=== PATIENT | female | born 1980 | race African-American/Black ===

== ENCOUNTER 2016-04-25 05:23 | Emergency (ER) | payer SELFPAY ==
[~2016-04-25] VITALS: Ht 172.7 cm; Wt 115.0 kg
[~2016-04-25 05:23] MED LIST: CHLO.12%30 SSP; NAPR-576 PO; PENI500T PO
[2016-04-25 05:28] VITALS: BP 129/84; PULSE 115; RESP 20; TEMP 97.9; O2SAT 99
[2016-04-25] MEDS ORDERED: VIST25CA PO (05:38)
--- NOTE | 2016-04-25 05:40 | PD ---
HPI Chief Complaint: Anxiety Time Seen by Provider: 05:30 Travel History International Travel<30 days: No Contact w/Intl Traveler<30days: No Traveled to known affect area: No History of Present Illness HPI 36-year-old female presents for evaluation of anxiety. She woke up this morning feeling anxious. She reports that she has been thinking about her mother and her mother's medical issues and this has made her anxious. She denies any drug or alcohol use. She reports that her mother gave her a small portion of her trazodone pill as well as some aspirin and Tylenol but none of this helped with her anxiety. She denies any depression, suicidal or homicidal ideation. She feels safe at home. She has no other complaints at this time. [facility] Past Medical History Anemia: Yes Diminished Hearing: No Immunizations Current: Yes ?: Not Menopausal: No : 3 Para: 3 Past Surgical History Abdominal Surgery: Yes (UMBILICAL HERNIA REPAIR) Social History Alcohol Use: Yes (SOCIAL) Tobacco Use: Yes (1/2PPD) Substance Use: No (marjuana use last used yesterday 02/15/13) Allergies-Medications (Allergen,Severity, Reaction): Coded Allergies: No Known Allergies (Verified , 04/25/16) Reported Meds & Prescriptions Reported Meds & Active Scripts Active Vistaril (Hydroxyzine Pamoate) 25 Mg Cap 25 Mg PO Q6H PRN Review of Systems Except as stated in HPI: all other systems reviewed are Neg Physical Exam Narrative GENERAL: Well-developed well-nourished female in no acute distress who appears anxious. SKIN: Warm and dry. HEAD: Atraumatic. Normocephalic. EYES: Pupils equal and round. No scleral icterus. No injection or drainage. ENT: No nasal bleeding or discharge. Mucous membranes pink and moist. NECK: Trachea midline. No JVD. CARDIOVASCULAR: Regular rate and rhythm. No murmur appreciated. RESPIRATORY: No accessory muscle use. Clear to auscultation. Breath sounds equal bilaterally. GASTROINTESTINAL: Abdomen soft, non-tender, nondistended. Hepatic and splenic margins not palpable. MUSCULOSKELETAL: No obvious deformities. NEUROLOGICAL: Awake and alert. No obvious cranial nerve deficits. Motor grossly within normal limits. Normal speech. PSYCHIATRIC: Anxious. Insight and judgment normal. Data Data Last Documented VS Vital Signs Date Time Temp Pulse Resp B/P Pulse Ox O2 Delivery O2 Flow Rate FiO2 04/25/16 05:35 109 04/25/16 05:28 97.9 20 129/84 99 Orders Hydroxyzine Hcl Inj (Vistaril Inj) (04/25/16 05:45) [facility] Medical Decision Making Medical Screen Exam Complete: Yes Emergency Medical Condition: Yes Medical Record Reviewed: Yes Differential Diagnosis Adjustment reaction, anxiety, acute psychosis, substance-induced disorder Narrative Course This patient presents because she woke up feeling anxious after thinking about her mother. On examination she appears anxious. She is not depressed or suicidal or psychotic. She is safe to follow-up as an outpatient with her primary care physician. She'll be given Vistaril to use as needed for anxiety. Diagnosis Primary Impression: Anxiety Additional Instructions: Medication as needed. Do not drive or drink alcohol when taking this medication. Follow-up closely with a primary care physician if symptoms persist. Return for any emergent medical conditions. Med/Other Pt SpecificInfo: Prescription(s) given Scripts Hydroxyzine Pamoate (Vistaril)25 Mg Cap25 Mg PO Q6H PRN (ANXIETY) #20 CAP Ref 0 Prov:Benigno Arredondo MD 04/25/16 Disposition: 01 DISCHARGE HOME Condition: Stable Bryce Salcedo Apr 25, 2016 05:40
[2016-04-25] MEDS ORDERED: hydrOXYzine HCL 50 MG/ML VIAL IM ONE (05:45)
== END 2016-04-25 06:27 | disposition home or self-care (01) ==
LOC: NEPB 05:23
DX: F41.9 Anxiety disorder, unspecified (principal); F17.200 Nicotine dependence, unspecified, uncomplicated; Z86.2 Personal history of diseases of the blood and blood-forming organs and certain disorders involving the immune mechanism
CPT/HCPCS: 96372; 99283; J3410

== ENCOUNTER 2016-08-22 20:03 | Emergency (ER) | payer SELFPAY ==
[~2016-08-22 20:03] MED LIST changes: -CHLO.12%30 SSP; -NAPR-576 PO; -PENI500T PO; +VIST25CA PO
[2016-08-22 20:05] VITALS: BP 125/73; PULSE 103; RESP 16; TEMP 99; O2SAT 98
[2016-08-22] MEDS ORDERED: DICL75TA PO (20:46)
--- NOTE | 2016-08-22 20:46 | PD ---
HPI Chief Complaint: Pain: Acute or Chronic Time Seen by Provider: 20:40 Travel History International Travel<30 days: No Contact w/Intl Traveler<30days: No Traveled to known affect area: No History of Present Illness HPI 36-year-old black female presents emergency Department with complains of right knee pain. She states that she been having pain in her right knee now for nearly 11 months. She states that this started after she had gotten . She states that she had gained a lot of weight. She is slowly lost some weight. She complains of pain around the kneecap and under the kneecap. Worse with bending and movement. She has some relief with elevation at the end of the day. She states that is worse when she gets up and starts moving. She does smoke but she doesn't not take control. No history of blood problems. Pain is moderate. Worse with movement. The patient denies any trauma. She does not work. PFSH Past Medical History Narrative Medical Obesity Anemia: Yes Diminished Hearing: No Immunizations Current: Yes Tetanus Vaccination: < 5 Years LMP: 08/01/16 Menopausal: No : 3 Para: 3 Past Surgical History Abdominal Surgery: Yes (UMBILICAL HERNIA REPAIR) Social History Alcohol Use: Yes (SOCIAL) Tobacco Use: Yes (1/2PPD) Allergies-Medications (Allergen,Severity, Reaction): Coded Allergies: No Known Allergies (Verified , 08/22/16) Reported Meds & Prescriptions Reported Meds & Active Scripts Active Vistaril (Hydroxyzine Pamoate) 25 Mg Cap 25 Mg PO Q6H PRN Review of Systems Except as stated in HPI: all other systems reviewed are Neg General / Constitutional: No: Fever Eyes: No: Blurred Vision HENT: No: Sore Throat, Neck Stiffness Cardiovascular: No: Chest Pain or Discomfort, Palpitations Respiratory: No: Cough, Shortness of Breath Gastrointestinal: No: Nausea, Vomiting Musculoskeletal: Positive: Arthralgias, Limited ROM, Edema, Pain Physical Exam Narrative GENERAL: This is a well-nourished, well-developed patient, in no apparent distress. Patient is morbidly obese. She ambulates with an antalgic gait. SKIN: No rashes, ecchymoses or lesions. Warm and dry. HEAD: Atraumatic. Normocephalic. EYES: PERRL, EOMI, no discharge or injection. No scleral icterus. EARS: Clear NOSE: Nasal turbinates appear normal. THROAT: Mucosa pink and moist. Airway patent. NECK: Trachea midline. supple, moves head freely. LUNGS: Clear to auscultation. CV: Regular in rhythm. ABDOMEN: Soft nontender. EXT: No clubbing cyanosis. Examination of the right lower extremity reveals infrapatellar tenderness to palpation. There is no erythema or warmth.. The patient has very large body habitus and his very difficult to determine swelling or joint effusion. She has full extension but has limited flexion due to pain. No gross instability. No pain in the hip, ankle or foot. She has intact sensation distally. She has intact dorsalis pedis pulse. No posterior calf tenderness. Data Data Last Documented VS Vital Signs Date Time Temp Pulse Resp B/P Pulse Ox O2 Delivery O2 Flow Rate FiO2 08/22/16 20:05 99.0 103 16 125/73 98 Room Air MDM Medical Decision Making Medical Screen Exam Complete: Yes Emergency Medical Condition: Yes Medical Record Reviewed: Yes Differential Diagnosis MDM: High Differential diagnoses: Fracture, sprain, strain, dislocation, contusion, neurovascular injury, bursitis, DVT Narrative Course The patient's symptoms are consistent with inflammatory arthritis and patellar bursitis. There is no evidence of DVT at this time. Diagnosis Primary Impression: Right knee pain Qualified Code: M25.561 - Chronic pain of right knee Additional Impressions: Osteoarthritis Qualified Code: M17.0 - Osteoarthritis of both knees, unspecified osteoarthritis type Patellar bursitis of right knee Patient Instructions: General Instructions Additional Instructions: Rest. Elevation. Ice. Diclofenac. Follow-up with the [facility] in one week. Return to the ER if symptoms worsen. Med/Other Pt SpecificInfo: Prescription(s) given Disposition: DISCHARGE HOME Condition: Stable Eamon Amador Aug 22, 2016 20:46
== END 2016-08-22 21:28 | disposition home or self-care (01) ==
LOC: NEPK 20:03
DX: M25.561 Pain in right knee (principal); G89.29 Other chronic pain; E66.9 Obesity, unspecified; F17.210 Nicotine dependence, cigarettes, uncomplicated; M17.0 Bilateral primary osteoarthritis of knee; M70.51 Other bursitis of knee, right knee
CPT/HCPCS: 99283

== ENCOUNTER 2016-08-29 19:35 | Emergency (ER) | payer SELFPAY ==
[~2016-08-29] VITALS: Ht 167.6 cm; Wt 90.0 kg
[~2016-08-29 19:35] MED LIST changes: +DICL75TA PO
[2016-08-29 19:36] VITALS: BP 127/83; PULSE 101; RESP 18; TEMP 99.9; O2SAT 100
--- NOTE | 2016-08-29 20:52 | PD ---
Physical Exam Date Seen by Provider: Aug 29, 2016 Time Seen by Provider: 20:50 Narrative 36 yo female here for evaluation of right mouth pain. Has had this for 3 days. Pain moving to her right head. Pain is 8/10. OTC not helping. Cant eat because of pain. No injuries. Per patient it is an abscess. Vitals sign stable. Patient awaiting bed placement. Data Data Last Documented VS Vital Signs Date Time Temp Pulse Resp B/P Pulse Ox O2 Delivery O2 Flow Rate FiO2 08/29/16 19:36 99.9 101 18 127/83 100 Room Air [facility] Medical Record Reviewed: Yes Supervised Visit with DOROTEO: No Jeancarlos Auguste Aug 29, 2016 20:52
[2016-08-29] MEDS ORDERED: AMOX875T PO (23:13)
[2016-08-29] MEDS ORDERED: TRAM50TA PO (23:14)
--- NOTE | 2016-08-29 23:14 | PD ---
HPI Chief Complaint: Oral / Dental Pain or Problem Time Seen by Provider: 23:09 Travel History International Travel<30 days: No Contact w/Intl Traveler<30days: No Traveled to known affect area: No History of Present Illness HPI Patient is a 36 year female presenting to the emergency for evaluation of right lower tooth pain. Pain started 3 days ago, patient states she is taking Aleve with no significant relief in her symptoms. She reports that the left cheek is swollen. She states that it's hard to chew. She has not attempted to contact a dentist for evaluation. She reports that her pain is an 8 out of 10 and describes it as throbbing. She denies any acute dental trauma. PFS Past Medical History Anemia: Yes Diminished Hearing: No Immunizations Current: Yes ?: Unknown LMP: 08/01/16 Menopausal: No : 3 Para: 3 Past Surgical History Abdominal Surgery: Yes (UMBILICAL HERNIA REPAIR) Social History Alcohol Use: Yes (SOCIAL) Tobacco Use: Yes (1/2PPD) Substance Use: No (marjuana use last used yesterday 02/15/13) Allergies-Medications (Allergen,Severity, Reaction): Coded Allergies: No Known Allergies (Verified , 08/29/16) Reported Meds & Prescriptions Reported Meds & Active Scripts Active Diclofenac Sodium DR (Diclofenac Sodium) 75 Mg Tabdr 75 Mg PO BID Vistaril (Hydroxyzine Pamoate) 25 Mg Cap 25 Mg PO Q6H PRN Review of Systems Except as stated in HPI: all other systems reviewed are Neg HENT: Positive: Dental Difficulties Physical Exam Narrative GENERAL: Well-nourished, well-developed patient. SKIN: Focused skin assessment warm/dry. HEAD: Normocephalic. EYES: No scleral icterus. No injection or drainage. ENT: Mucosa pink and moist. No erythema or exudates. No uvular edema. No uvular , palatal, or tonsillar deviation. Airway patent. Right lower third molar appears diseased. No obvious abscess noted along gumlines. NECK: Supple, trachea midline. No JVD or lymphadenopathy. CARDIOVASCULAR: Regular rate and rhythm without murmurs, gallops, or rubs. RESPIRATORY: Breath sounds equal bilaterally. No accessory muscle use. GASTROINTESTINAL: Abdomen soft, non-tender, nondistended. MUSCULOSKELETAL: No cyanosis, or edema. BACK: Nontender without obvious deformity. No CVA tenderness. Data Data Last Documented VS Vital Signs Date Time Temp Pulse Resp B/P Pulse Ox O2 Delivery O2 Flow Rate FiO2 08/29/16 19:36 99.9 101 18 127/83 100 Room Air Orders Ketorolac Inj (Toradol Inj) (08/29/16 23:15) Amoxicillin (Trimox) (08/29/16 23:15) MDM Medical Decision Making Medical Screen Exam Complete: Yes Emergency Medical Condition: Yes Interpretation(s) Vital Signs Date Time Temp Pulse Resp B/P Pulse Ox O2 Delivery O2 Flow Rate FiO2 08/29/16 19:36 99.9 101 18 127/83 100 Room Air Differential Diagnosis Abscess versus dental jaw versus dental caries versus other Narrative Course Patient is a 36-year-old female presenting to the emergency reevaluation of right lower dental pain. Upon physical examination there is dental disease noted to the right lower molars, there does not appear to be any obvious abscess noted. Patient will be started on amoxicillin and given first dose tonight in the emergency department. She was advised to follow-up with a dentist for further evaluation and management. She was advised to return to emergency department for any new or worsening symptoms. Patient verbalizes understanding of these instructions. Patient stable for discharge. Diagnosis Primary Impression: Pain, dental Additional Impression: Dental caries Referrals: Dentist 1 week Patient Instructions: Dental Caries (DC), General Instructions, Toothache (ED) Additional Instructions: Follow-up with a dentist Complete full course of antibiotics as prescribed Return to emergency department immediately for any new or worsening symptoms Med/Other Pt SpecificInfo: Prescription(s) given Scripts Tramadol 50 Mg Tab50 Mg PO Q6H PRN (PAIN) #10 TAB Ref 0 Prov:Hayden Messer MD 08/29/16 Amoxicillin 875 Mg [id number] Mg PO BID 10 Days Ref 0 Prov:Rubina Moreno 08/29/16 Disposition: 01 DISCHARGE HOME Condition: Stable Rubina Moreno Aug 29, 2016 23:14
[2016-08-29] MEDS ORDERED: KETOROLAC TROMETHAMINE 60 MG/2 ML (IM) VIAL IM ONE (23:15)
[2016-08-29] MEDS ORDERED: AMOXICILLIN 875 MG TAB PO ONE (23:15)
== END 2016-08-29 23:44 | disposition home or self-care (01) ==
LOC: NEPD 19:35
DX: K08.89 Other specified disorders of teeth and supporting structures (principal); K02.9 Dental caries, unspecified; F17.200 Nicotine dependence, unspecified, uncomplicated
CPT/HCPCS: 96372; 99284; J1885

== ENCOUNTER 2017-02-17 13:53 | Emergency (ER) | payer SELFPAY ==
[~2017-02-17] VITALS: Ht 167.6 cm; Wt 113.5 kg
[~2017-02-17 13:53] MED LIST changes: +AMOX875T PO; +TRAM50TA PO
[2017-02-17 13:54] VITALS: BP 176/98; PULSE 116; RESP 20; TEMP 98.4; O2SAT 100
[2017-02-17] MEDS ORDERED: ASPIRIN 81 MG CHEW TAB PO ONE (16:30)
[2017-02-17] MEDS ORDERED: SODIUM CHLORIDE 0.9% FLUSH 10 ML FLUSH IVF PRN (16:30)
--- NOTE | 2017-02-17 16:33 | PD ---
HPI Chief Complaint: Anxiety Time Seen by Provider: 16:21 Travel History International Travel<30 days: No Contact w/Intl Traveler<30days: No Traveled to known affect area: No History of Present Illness HPI Patient comes in complaining of anxiety attack that began while at lunch today. Patient states that prior to going to lunch she had some left-sided neck pain and headache. Patient states she took some Tylenol that seem to help improve this however when she went to have lunch and started having tingling in her left upper extremity. Patient reports associated substernal chest pain described as a stabbing that began while in the ER. Patient reports a history of anxiety but is not on any medication currently. Patient states this felt similar to her previous anxiety attacks. Patient does report recent travel by car to [place], [place]. Patient admits to smoking. Denies any known family history of heart attacks or sudden before age 40. PFSH Past Medical History Anemia: Yes Anxiety: Yes Diminished Hearing: No Immunizations Current: Yes Tetanus Vaccination: > 5 Years Influenza Vaccination: No ?: Unknown Menopausal: No : 3 Para: 3 Past Surgical History Abdominal Surgery: Yes (UMBILICAL HERNIA REPAIR) Social History Alcohol Use: Yes (SOCIAL) Tobacco Use: Yes (1 PPD) Substance Use: Yes (marjuana use last used yesterday 02/15/13) Allergies-Medications (Allergen,Severity, Reaction): Coded Allergies: No Known Allergies (Verified Allergy, Unknown, 02/17/17) Reported Meds & Prescriptions Reported Meds & Active Scripts Active Vistaril (Hydroxyzine Pamoate) 25 Mg Cap 25 Mg PO Q6H PRN Tramadol (Tramadol HCl) 50 Mg Tab 50 Mg PO Q6H PRN Amoxicillin 875 Mg Tab 875 Mg PO BID [address] (Diclofenac Sodium) 75 Mg Tabdr 75 Mg PO BID Review of Systems Except as stated in HPI: all other systems reviewed are Neg Physical Exam Narrative GENERAL: Well-developed, overly nourished, in no acute distress, and non-ill appearing. SKIN: Focused skin assessment warm and dry. HEAD: Atraumatic. Normocephalic. EYES: Pupils equal and round. EOMI. No scleral icterus. No injection or drainage. ENT: No nasal bleeding or discharge. Mucous membranes pink and moist. NECK: Trachea midline. Supple. No nuclear rigidity. CARDIOVASCULAR: Regular rate and rhythm. No murmur appreciated. RESPIRATORY: No accessory muscle use. No respiratory distress. Clear to auscultation. Breath sounds equal bilaterally. MUSCULOSKELETAL: No obvious deformities. No clubbing. No cyanosis. No edema. Full range of motion. NEUROLOGICAL: Awake and alert. No obvious cranial nerve deficits. Motor grossly within normal limits. Normal speech. PSYCHIATRIC: Appropriate mood and affect; insight and judgment normal. Data Data Last Documented VS Vital Signs Date Time Temp Pulse Resp B/P (MAP) Pulse Ox O2 Delivery O2 Flow Rate FiO2 02/17/17 18:56 02/17/17 16:35 99 Room Air 02/17/17 16:21 18 02/17/17 13:54 98.4 116 Orders Orders Electrocardiogram (02/17/17 ) Basic Metabolic Panel (Bmp) (02/17/17 16:26) Ckmb (Isoenzyme) Profile (02/17/17 16:26) Complete Blood Count With Diff (02/17/17 16:26) D-Dimer (02/17/17 16:26) Magnesium (Mg) (02/17/17 16:26) Prothrombin Time / Inr (Pt) (02/17/17 16:26) Act Partial Throm Time (Ptt) (02/17/17 16:26) Troponin I (02/17/17 16:26) Chest, Single Ap (02/17/17 16:26) Ecg Monitoring (02/17/17 16:26) Bilateral Bp Monitoring (02/17/17 16:26) Iv Access Insert/Monitor (02/17/17 16:26) Oximetry (02/17/17 16:26) Oxygen Administration (02/17/17 16:26) Aspirin Chew (Aspirin Chew) (02/17/17 16:30) Sodium Chloride 0.9% Flush (Ns Flush) (02/17/17 16:30) CKMB (02/17/17 16:30) CKMB% (02/17/17 16:30) Ct Pulmonary Angiogram (02/17/17 ) Ed Urine Pregnancytest Poc (02/17/17 18:14) Iohexol 350 Inj (Omnipaque 350 Inj) (02/17/17 18:37) Ed Discharge Order (02/17/17 18:50) Labs Laboratory Tests Test 12/1/17 16:30 White Blood Count 7.1 TH/MM3 Red Blood Count 4.21 MIL/MM3 Hemoglobin 12.0 GM/DL Hematocrit 36.0 % Mean Corpuscular Volume 85.7 FL Mean Corpuscular Hemoglobin 28.5 PG Mean Corpuscular Hemoglobin Concent 33.3 % Red Cell Distribution Width 14.0 % Platelet Count 292 TH/MM3 Mean Platelet Volume 8.9 FL Neutrophils (%) (Auto) 52.0 % Lymphocytes (%) (Auto) 39.9 % Monocytes (%) (Auto) 6.9 % Eosinophils (%) (Auto) 0.7 % Basophils (%) (Auto) 0.5 % Neutrophils # (Auto) 3.7 TH/MM3 Lymphocytes # (Auto) 2.8 TH/MM3 Monocytes # (Auto) 0.5 TH/MM3 Eosinophils # (Auto) 0.0 TH/MM3 Basophils # (Auto) 0.0 TH/MM3 CBC Comment DIFF FINAL Differential Comment Prothrombin Time 10.4 SEC Prothromb Time International Ratio 1.0 RATIO Activated Partial Thromboplast Time 25.4 SEC D-Dimer Quantitative (PE/DVT) 1.46 MG/L FEU Blood Urea Nitrogen 8 MG/DL Creatinine 0.75 MG/DL Random Glucose 87 MG/DL Calcium Level 8.5 MG/DL Magnesium Level 2.0 MG/DL Sodium Level 138 MEQ/L Potassium Level 3.8 MEQ/L Chloride Level 107 MEQ/L Carbon Dioxide Level 24.7 MEQ/L Anion Gap 6 MEQ/L Estimat Glomerular Filtration Rate 105 ML/MIN Total Creatine Kinase 175 U/L Creatine Kinase MB 0.9 NG/ML Troponin I LESS THAN 0.02 NG/ML MDM Medical Decision Making Medical Screen Exam Complete: Yes Emergency Medical Condition: Yes Interpretation(s) EKG reviewed by Dr. Polanco shows sinus rhythm ventricular rate of 96. No STEMI. Differential Diagnosis Atypical chest pain, PE, metabolic service, pneumonia, anxiety Narrative Course Patient was seen and examined. Initial laboratory radiological studies were ordered. Secondary to the elevated d-dimer a CT pulmonary angiogram was ordered to rule out PE. This was discussed with patient. All questions were answered. The patients symptoms by history and evaluation appears noncardiac, nor noncardiopulmonary in etiology. Evaluation revealed no evidence of cardiac involvement at this time. There is no clinical evidence to suggest thoracic aortic aneurysms or pathology, nor evidence to suggest pulmonary embolism, pericarditis, pneumothorax, nor pneumonia at this time. The patient has minimal risk factors for cardiac disease, pulmonary embolism or aortic disease. Patient in no obvious distress upon re-evaluation. Discussed patient with Dr. Polanco prior to discharge, who is in agreement care and disposition. All pertinent laboratory/Radiology result(s) discussed with patient. Patient was asked if they wanted to speak to my attending, which the patient did not wish to do at this time. Any questions/concerns in reference to patient diagnosis/ condition discussed and clarified prior to patient's discharge. Reinforced sheer importance of close follow up with patient's primary physician or primary care clinic. Instructed patient to return to ED immediately, if symptoms return/ worsen. Patient showed understanding of above instructions. Further instructions and recommendations were detailed in discharge paperwork. Patient ambulated without difficulty out of ED at discharge. Diagnosis Primary Impression: Anxiety Referrals: [facility] Patient Instructions: General Instructions Additional Instructions: Follow-up with your primary care physician and/or Kyler Resendiz next week for reevaluation. Take all medication as prescribed. Return to the emergency department if symptoms get worse. Med/Other Pt SpecificInfo: Prescription(s) given Scripts Hydroxyzine Pamoate (Vistaril) 25 Mg Cap 25 MG PO Q6H Y for ANXIETY, #20 CAP 0 Refills Prov: Tmaeka Polanco MD 02/17/17 Disposition: 01 DISCHARGE HOME Condition: Stable Aquiles Jefferson Feb 17, 2017 16:33
[2017-02-17 16:35] VITALS: O2SAT 99
[2017-02-17 17:16] LABS: AUTOMATED NEUTROPHIL # 3.7 TH/MM3 (1.8-7.7); BASOPHIL % 0.5 % (0.0-2.0); EOSINOPHIL % 0.7 % (0.0-4.0); HEMO FLAGS DIFF FINAL; LYMPH % 39.9 % (9.0-44.0); LYMPHOCYTE # 2.8 TH/MM3 (1.0-4.8); MEAN CELL VOLUME 85.7 FL (80.0-100.0); MEAN CORPUSCULAR HEMOGLOBIN 28.5 PG (27.0-34.0); MEAN CORPUSCULAR HGB CONC 33.3 % (32.0-36.0); MONO % 6.9 % (0.0-8.0); PLATELET COUNT 292 TH/MM3 (150-450); RED BLOOD COUNT 4.21 MIL/MM3 (4.00-5.30); WHITE BLOOD COUNT 7.1 TH/MM3 (4.0-11.0)
[2017-02-17 17:33] LABS: APTT (PATIENT) 25.4 SEC (24.3-30.1); PROTHROMBIN TIME - PATIENT 10.4 SEC (9.8-11.6)
[2017-02-17 17:36] LABS: ANION GAP 6 MEQ/L (5-15); BICARBONATE 24.7 MEQ/L (21.0-32.0); BLOOD UREA NITROGEN 8 MG/DL (7-18); CHLORIDE 107 MEQ/L (98-107); GLOMERULAR FILTRATION RATE 105 ML/MIN (>89); POTASSIUM 3.8 MEQ/L (3.5-5.1); SODIUM (NA) 138 MEQ/L (136-145)
[2017-02-17 17:39] LABS: CREATINE KINASE 175 U/L (26-192)
--- NOTE | 2017-02-17 17:48 | RADRPT ---
EXAM DATE/TIME: 02/17/2017 16:37 [facility] COMPARISON: No previous studies available for comparison. INDICATIONS : Chest pain. Anxiety attack today. MEDICAL HISTORY : None. SURGICAL HISTORY : Hiatal Hernia repair. ENCOUNTER: Initial ACUITY: 1 day PAIN SCORE: 8/10 LOCATION: Left middle chest FINDINGS: A single view of the chest demonstrates the lungs to be symmetrically aerated without evidence of mas s, infiltrate or effusion. The cardiomediastinal contours are unremarkable. Osseous structures are intact. CONCLUSION: No acute disease. Deepak Haynes MD FACR on February 17, 2017 at 17:46 Board Certified Radiologist. This report was verified electronically.
[2017-02-17 17:51] LABS: CKMB 0.9 NG/ML (0.5-3.6)
[2017-02-17] MEDS ORDERED: IOHEXOL 350 MG/ML 10 ML VIAL (for RAD DIAG) IVCONTRAST ONE (18:37)
--- NOTE | 2017-02-17 18:44 | RADRPT ---
EXAM DATE/TIME: 02/17/2017 18:21 [facility] COMPARISON: No previous studies available for comparison. INDICATIONS : Anxiety attack. Headache.Tingling left arm and neck. IV CONTRAST: 96 cc Omnipaque 350 (iohexol) IV RADIATION DOSE: 22.95 CTDIvol (mGy) ; Patient body habitus MEDICAL HISTORY : None Marijuana usage SURGICAL HISTORY : Umbilical hernia repair. ENCOUNTER: Initial ACUITY: 1 day PAIN SCALE: 0/10 LOCATION: chest TECHNIQUE: Volumetric scanning of the chest was performed using a pulmonary embolism protocol MIP images were re constructed. Using automated exposure control and adjustment of the mA and/or kV according to patien t size, radiation dose was kept as low as reasonably achievable to obtain optimal diagnostic quality images. DICOM format image data is available electronically for review and comparison. Follow-up recommendations for detected pulmonary nodules are based at a minimum on nodule size and pa tient risk factors according to Fleischner Society Guidelines. FINDINGS: PULMONARY ARTERIES: No filling defects are seen in the pulmonary arteries through the segmental level. LUNGS: There is no consolidation or pneumothorax . No concerning pulmonary nodule is visualized. PLEURAE: There is no pleural thickening or pleural effusion. MEDIASTINUM: There is good visualization of the great vessels of the middle mediastinum. No evidence of mediastin al or hilar adenopathy/mass. MUSCULOSKELETAL: Within normal limits for patient age. MISCELLANEOUS: The visualized upper abdominal organs demonstrate no acute abnormality. CONCLUSION: 1. Negative for pulmonary embolism. No lung consolidation or pleural pericardial effusion. Eamon Gallegos MD on February 17, 2017 at 18:39 Board Certified Radiologist. This report was verified electronically.
[2017-02-17] MEDS ORDERED: VIST25CA PO (18:50)
--- NOTE | 2017-02-19 23:27 | EKG ---
Date Performed: 02/17/2017 Time Performed: 14:07:51 PTAGE: 36 years EKG: Sinus rhythm NORMAL ECG PREVIOUS TRACING : 02/16/2013 19.32 Compared to prior tracing no significant change DOCTOR: Cody Cade Interpretating Date/Time 02/19/2017 23:26:59
== END 2017-02-17 18:59 | disposition home or self-care (01) ==
LOC: NEPD 13:53
DX: F41.9 Anxiety disorder, unspecified (principal); M54.2 Cervicalgia; R51 Headache; D64.9 Anemia, unspecified; F17.200 Nicotine dependence, unspecified, uncomplicated; Z79.899 Other long term (current) drug therapy
CPT/HCPCS: 71010; 71275; 80048; 82550; 82552; 83735; 84484; 84703; 85025; 85379; 85610; 85730; 93005; 99285; Q9967

== ENCOUNTER 2017-05-29 12:44 | Emergency (ER) | payer SELFPAY ==
[2017-05-29 12:52] VITALS: BP 108/62; TEMP 98.1; O2SAT 100
[2017-05-29] MEDS ORDERED: ASPI-516 CHEW (12:52)
[2017-05-29] MEDS ORDERED: CEPH-460 PO (13:06)
[2017-05-29] MEDS ORDERED: BACT800T5 PO (13:06)
--- NOTE | 2017-05-29 13:13 | PD ---
HPI Chief Complaint: Skin Problem Time Seen by Provider: 12:59 Travel History International Travel<30 days: No Contact w/Intl Traveler<30days: No Traveled to known affect area: No History of Present Illness HPI 37-year-old female presents emergency department with concerns of the wound and possible infection to the right lower extremity. States she had an ingrown hair couple of days ago and her cousin picked it out resulting in this wound/ ulcer. States the site is more painful and believes it may be infected. Denies fever, chills, nausea, vomiting. She denies numbness or tingling to the area. She has no other complaints today. PFSH Past Medical History Anemia: Yes Anxiety: Yes Diminished Hearing: No Immunizations Current: Yes ?: Not LMP: LAST MONTH Menopausal: No : 3 Para: 3 Past Surgical History Abdominal Surgery: Yes (UMBILICAL HERNIA REPAIR) Social History Alcohol Use: Yes (SOCIAL) Tobacco Use: Yes (1 PPD) Substance Use: Yes Allergies-Medications (Allergen,Severity, Reaction): Coded Allergies: No Known Allergies (Verified Allergy, Unknown, 02/17/17) Reported Meds & Prescriptions Reported Meds & Active Scripts Active Keflex (Cephalexin) 500 Mg Cap 500 Mg PO Q8H 7 Days Bactrim DS (Sulfamethoxazole-Trimethoprim) 800-160 Mg Tab 1 Tab PO BID Reported Aspirin 81 Mg Chew 81 Mg CHEW ONCE Review of Systems Except as stated in HPI: all other systems reviewed are Neg Physical Exam Narrative GENERAL: Well-nourished, well-developed patient. SKIN: Focused skin assessment warm/dry. HEAD: Normocephalic. EYES: No scleral icterus. No injection or drainage. NECK: Supple, trachea midline. No JVD MUSCULOSKELETAL: No cyanosis, or edema. BACK: Nontender without obvious deformity. No CVA tenderness. Psych: Appropriate mood and affect Right lower extremity- 2mm ulcer to the anterolateral aspect of the mid rivas, small amount of serosanguineous fluid expressed spontaneously without fluctuance surrounding ulcer. area of erythema 3-4cm around site. Data Data Last Documented VS Vital Signs Date Time Temp Pulse Resp B/P (MAP) Pulse Ox O2 Delivery O2 Flow Rate FiO2 05/29/17 12:52 98.1 82 16 108/62 (77) 100 Orders Orders Ed Discharge Order (05/29/17 13:13) MDM Medical Decision Making Medical Screen Exam Complete: Yes Emergency Medical Condition: Yes Differential Diagnosis Right lower extremity cellulitis, abscess, edema Narrative Course 37y female presents to the ED for concern of a RLE wound after an ingrown hair was removed by her cousin. Says the area has become more painful and swollen over the last day and believes it may be infected. Denies fever, chills, nausea , vomiting. Vital signs stable. Physical exam shows an ulcerated lesion to the right lower extremity spontaneously draining. No fluctuance over the area. Neurovascularly intact. Because it appears that patient may have had an abscess that has spontaneously drained, will cover with Keflex and Bactrim. Explained the importance of taking these antibiotics to the patient. Explained that if the symptoms persist or worsen to return to the emergency room. Advised that she should follow-up with [facility]. Diagnosis Primary Impression: Cellulitis Qualified Codes: L03.115 - Cellulitis of right lower limb Referrals: [facility] Additional Instructions: Follow up with your primary care physician within 2-3 days. If your symptoms persist or worsen, return to the emergency department. Keep area clean and dry. You may bathe as normal. You may use [id number] triple antibiotic ointments for your injury daily. Change dressings daily. If bleeding starts, applied pressure and elevate the area. If he developed increased redness, swelling, or pain return to the emergency department. Follow up with [facility] for your health. Scripts Cephalexin (Keflex) 500 Mg Cap 500 MG PO Q8H for Infection for 7 Days, #21 CAP 0 Refills Prov: Iesha Sorensen 05/29/17 Sulfamethoxazole-Trimethoprim (Bactrim DS) 800-160 Mg Tab 1 TAB PO BID for Infection, #14 TAB 0 Refills Prov: Iesha Sorensen 05/29/17 Disposition: 01 DISCHARGE HOME Condition: Stable Iesha Sorensen May 29, 2017 13:13
== END 2017-05-29 13:38 | disposition home or self-care (01) ==
LOC: NEPA 12:44
DX: L03.115 Cellulitis of right lower limb (principal); F41.9 Anxiety disorder, unspecified; F17.200 Nicotine dependence, unspecified, uncomplicated; F19.90 Other psychoactive substance use, unspecified, uncomplicated
CPT/HCPCS: 99283